=== PATIENT | female | born 1980 | race Caucasian/White ===

== ENCOUNTER 2024-10-29 08:45 | Emergency (ER) | payer MEDICAID ==
[~2024-10-29] VITALS: Ht 175.3 cm; Wt 80.9 kg
[2024-10-29 08:47] VITALS: BP 156/98; PULSE 79; RESP 16; TEMP 97.9; O2SAT 100
[2024-10-29] MEDS ORDERED: ALBU18HF2 INH (10:17)
[2024-10-29] MEDS ORDERED: AZIT-164 PO (10:17)
[2024-10-29] MEDS ORDERED: BENZ-38 PO (10:17)
== END 2024-10-29 10:26 | disposition home or self-care (01) ==
LOC: ER 08:45
DX: J20.9 Acute bronchitis, unspecified (principal); J22 Unspecified acute lower respiratory infection; I50.9 Heart failure, unspecified; Z88.0 Allergy status to penicillin; Z88.1 Allergy status to other antibiotic agents; Z79.2 Long term (current) use of antibiotics; Z79.899 Other long term (current) drug therapy; Z20.822 Contact with and (suspected) exposure to COVID-19
CPT/HCPCS: 36415; 87502; 87503; 87811; 99283

== ENCOUNTER 2024-11-09 09:02 | Emergency (ER) | payer MEDICAID ==
[~2024-11-09] VITALS: Ht 172.7 cm; Wt 72.6 kg
[~2024-11-09 09:02] MED LIST: ALBU18HF2 INH; AZIT-164 PO; BENZ-38 PO
[2024-11-09] MEDS ORDERED: proMETHazine 6.25 mg/5 ml UD oral syrup PO STA (09:32)
[2024-11-09] MEDS: dexamethasone sod phosphate 10mg/ml inj PO STA (10:25)
[2024-11-09] MEDS: proMETHazine 6.25 mg/5 ml UD oral syrup PO STA (10:27)
[2024-11-09] MEDS: ketorolac trometh 30MG/ML vial 30 MG/ML VIAL IM ONE (11:15)
[2024-11-09] MEDS ORDERED: ALBU8HFA INH (11:25)
[2024-11-09] MEDS ORDERED: PRED20TA PO (11:25)
[2024-11-09] MEDS ORDERED: PROM118S5 PO (11:25)
[2024-11-09 11:30] VITALS: BP 138/78; PULSE 78; RESP 16; TEMP 98.1; O2SAT 95
== END 2024-11-09 11:31 | disposition home or self-care (01) ==
LOC: ER 09:02
DX: U07.1 COVID-19 (principal); J20.8 Acute bronchitis due to other specified organisms; Z88.0 Allergy status to penicillin; Z88.1 Allergy status to other antibiotic agents
CPT/HCPCS: 36415; 71045; 87502; 87503; 87811; 99284; J1100

== ENCOUNTER 2024-11-21 14:15 | Emergency (ER) | payer MEDICAID ==
[~2024-11-21] VITALS: Ht 172.7 cm; Wt 81.8 kg
[~2024-11-21 14:15] MED LIST changes: +ALBU8HFA INH; -AZIT-164 PO
[2024-11-21 14:24] VITALS: TEMP 98
[2024-11-21 14:57] LABS: BASOPHILS # (AUTO) 0.1 X10'3 (0-0.2); BASOPHILS % (AUTO) 1.2 % (0-1); EOSINOPHILS % (AUTO) 0.6 % (0-6); HEMATOCRIT 35.7 % (35.0-45.0); HEMOGLOBIN 11.7 g/dl (12.0-16.0); LYMPHOCYTES # (AUTO) 1.8 X10'3 (1.1-4.8); LYMPHOCYTES % (AUTO) 34.3 % (21-51); MEAN CORPUSCULAR HEMOGLOBIN 27.5 PG (27.0-31.0); MEAN CORPUSCULAR HGB CONC 32.7 g/dL (33.0-36.5); MEAN CORPUSCULAR VOLUME 84.1 FL (78-98); MEAN PLATELET VOLUME 7.4 FL (7.4-10.4); MONOCYTES # (AUTO) 0.5 X10'3 (0-0.9); MONOCYTES % (AUTO) 9.3 % (2-12); NEUTROPHILS # (AUTO) 2.9 X10'3 (1.8-7.7); NEUTROPHILS % (AUTO) 54.6 % (42-75); PLATELET COUNT 335 X10'3 (140-440); RED BLOOD COUNT 4.25 X10'6 (4.20-5.60); RED CELL DISTRIBUTION WIDTH 15.7 % (11.5-14.5); WHITE BLOOD COUNT 5.2 X10'3 (4.5-11.0)
[2024-11-21 15:14] LABS: ALBUMIN 3.6 G/DL (3.4-5.0); ANION GAP 9 (8-16); BLOOD UREA NITROGEN 12 MG/DL (7-18); BUN/CREATININE RATIO 13.6 (10.0-20.0); CALCIUM 8.6 MG/DL (8.5-10.1); CHLORIDE 106 MMOL/L (99-107); CREATININE 0.88 MG/DL (0.40-0.90); GLUCOSE 82 MG/DL (70-104); MAGNESIUM 1.9 MG/DL (1.5-2.4); POTASSIUM 3.6 MMOL/L (3.5-5.1); PRO BRAIN NATRIURETIC PEPTIDE 60 PG/ML (0-125); SODIUM 141 MMOL/L (135-145); TOTAL CARBON DIOXIDE 25.8 MMOL/L (24-32); eCRCL 82 ML/MIN; eGFR 70 ML/MIN
[2024-11-21] MEDS ORDERED: SPIR25TA5 PO (17:50)
[2024-11-21] MEDS ORDERED: METO-539 PO (17:50)
[2024-11-21] MEDS ORDERED: BUME2TAB7 PO (17:50)
[2024-11-21] MEDS: metoprolol succinate 25mg (24-HOUR) SR. Tablet PO ONE (18:18)
[2024-11-21] MEDS: bumetanide 1mg tablet PO ONE (18:18)
[2024-11-21] MEDS: spironolactone 25 MG tablet PO ONE (18:18)
[2024-11-21 18:20] VITALS: BP 147/99; PULSE 78; RESP 16; O2SAT 98
== END 2024-11-21 18:21 | disposition home or self-care (01) ==
LOC: ER 14:16
DX: I11.0 Hypertensive heart disease with heart failure (principal); I50.9 Heart failure, unspecified; Z88.0 Allergy status to penicillin
CPT/HCPCS: 36415; 71045; 80048; 83735; 83880; 84484; 85025; 93005; 99285

== ENCOUNTER 2024-12-04 11:20 | Emergency (ER) | payer MEDICAID ==
[~2024-12-04] VITALS: Ht 175.3 cm; Wt 83.1 kg
[~2024-12-04 11:20] MED LIST changes: -BENZ-38 PO; +BUME2TAB7 PO; +METO-539 PO; +SPIR25TA5 PO
[2024-12-04 11:23] VITALS: BP 135/102; PULSE 83; RESP 16; TEMP 98; O2SAT 99
[2024-12-04] MEDS: triamcinolone acetonide 40mg/ml inj IM ONE (13:02)
== END 2024-12-04 13:14 | disposition home or self-care (01) ==
LOC: ER 11:21
DX: L23.7 Allergic contact dermatitis due to plants, except food (principal); I50.9 Heart failure, unspecified; Z88.0 Allergy status to penicillin
CPT/HCPCS: 96372; 99283; J3301